=== PATIENT | female | born 1965 | race Asian ===

== ENCOUNTER 2016-12-31 14:13 | Emergency (ER) | payer MEDICARE, MEDICAID ==
[~2016-12-31] VITALS: Ht 157.5 cm; Wt 59.1 kg
[2016-12-31] MEDS ORDERED: PENI250T4 PO (14:20)
[2016-12-31] MEDS ORDERED: ACET-2247 PO (14:20)
[2016-12-31] MEDS ORDERED: IBUP100T53 PO (14:20)
[2016-12-31] MEDS ORDERED: TraMADol HCL 50 MG TABLET PO ONE (15:30)
[2016-12-31] MEDS ORDERED: KETOROLAC TROMETHAMINE 60 MG/2 ML VIAL IM ONE (15:30)
[2016-12-31 18:14] VITALS: BP 137/68
== END 2016-12-31 18:15 | disposition home or self-care (01) ==
LOC: EMS 14:15
DX: M13.841 Other specified arthritis, right hand (principal); M13.831 Other specified arthritis, right wrist; M54.9 Dorsalgia, unspecified
CPT/HCPCS: 29125; 73130; 96372; 99284; J1885

== ENCOUNTER 2019-06-14 21:47 | Emergency (ER) | payer MEDICARE, MEDICAID ==
[~2019-06-14 21:47] MED LIST: ACET-2247 PO; IBUP100T53 PO; PENI250T4 PO
== END 2019-06-14 22:00 | disposition left against medical advice (07) ==
LOC: EMS 21:48
DX: Z53.21 Procedure and treatment not carried out due to patient leaving prior to being seen by health care provider (principal)